=== PATIENT | male | born 1975 | race Caucasian/White ===

== ENCOUNTER 2017-02-24 16:00 | Inpatient (IN) | payer MEDICAID ==
[~2017-02-24] VITALS: Ht 182.9 cm; Wt 94.1 kg
[~2017-02-24 16:00] MED LIST: GABA-531 PO; OLAN20TA2 PO
[2017-02-24] MEDS ORDERED: LORazepam 2 MG/ML VIAL IM ONE (16:30)
[2017-02-24] MEDS ORDERED: HALOPERIDOL LACTATE 5 MG/ML VIAL IM ONE (16:30)
[2017-02-24] MEDS ORDERED: DiphenhydrAMINE HCL 50 MG/ML VIAL IM ONE (16:30)
[2017-02-24 16:34] LABS: BASOPHILS % (AUTO) 0.2 % (0.0-2.0); EOSINOPHILS % (AUTO) 7.7 % (1.0-6.0); HEMATOCRIT 43.3 % (41-53); HEMOGLOBIN 14.6 g/dL (13.5-17.5); LYMPHOCYTES # (AUTO) 2.4 K/uL (1.0-4.8); LYMPHOCYTES % (AUTO) 27.9 % (22.0-44.0); MEAN CORPUSCULAR HGB CONC 33.8 G/dL (31.0-37.0); MEAN CORPUSCULAR VOLUME 89 fL (80-100); MONOCYTES # (AUTO) 1.1 K/uL (0.1-1.0); MONOCYTES % (AUTO) 12.2 % (2.0-9.0); NEUTROPHILS # (AUTO) 4.5 K/uL (1.8-7.7); PLATELET COUNT (AUTO) 291 K/uL (150-450); RED BLOOD CELL COUNT(AUTO) 4.87 MIL/uL (4.50-5.90); RED CELL DISTRIBUTION WIDTH 14.4 % (11.5-14.5); WHITE BLOOD COUNT (AUTO) 8.6 K/uL (4.5-11.0)
[2017-02-24 16:47] LABS: ANION GAP 11 mmol/L (8-16); CALCIUM, TOTAL 8.2 mg/dL (8.8-10.5); CARBON DIOXIDE 24 mmol/L (22-29); CHLORIDE 110 mmol/L (98-107); CREATININE 1.02 mg/dL (0.60-1.30); GLOMERULAR FILTR. RATE CALC > 60 mL/min (>60); POTASSIUM 4.3 mmol/L (3.5-5.1); SODIUM SERUM 145 mmol/L (136-145); UREA NITROGEN, BLOOD 6 mg/dL (7-18)
[2017-02-24 16:53] LABS: ALANINE AMINOTRANSFERASE 56 U/L (12-78); ALBUMIN 3.3 g/dL (3.4-5.0); ASPARTATE AMINOTRANSFERASE 30 U/L (15-37); BILIRUBIN,TOTAL 0.3 mg/dL (0.1-1.0)
[2017-02-24] MEDS ORDERED: BUSP5TAB20 PO (16:53)
[2017-02-24] MEDS ORDERED: PROZ10 PO (16:53)
[2017-02-24] MEDS ORDERED: ZOLPIDEM TARTRATE 10 MG TABLET PO PRN (17:15)
[2017-02-24] MEDS ORDERED: HALOPERIDOL 5 MG TABLET PO PRN (17:15)
[2017-02-24 20:42] VITALS: BP 130/86
[2017-02-24] MEDS ORDERED: PNEUMOCOCCAL VACCINE POLYVALENT 0.5 ML VIAL [PPSV23] IM ONE (21:15)
[2017-02-25 08:29] LABS: BASOPHILS % (AUTO) 0.3 % (0.0-2.0); EOSINOPHILS % (AUTO) 9.1 % (1.0-6.0); HEMATOCRIT 44.1 % (41-53); HEMOGLOBIN 14.9 g/dL (13.5-17.5); LYMPHOCYTES # (AUTO) 1.8 K/uL (1.0-4.8); LYMPHOCYTES % (AUTO) 24.8 % (22.0-44.0); MEAN CORPUSCULAR HEMOGLOBIN 30.5 pg (26.0-34.0); MEAN CORPUSCULAR HGB CONC 33.8 G/dL (31.0-37.0); MEAN CORPUSCULAR VOLUME 90 fL (80-100); MONOCYTES # (AUTO) 0.8 K/uL (0.1-1.0); MONOCYTES % (AUTO) 11.4 % (2.0-9.0); NEUTROPHILS # (AUTO) 3.9 K/uL (1.8-7.7); NEUTROPHILS % (AUTO) 54.4 % (40.0-70.0); PLATELET COUNT (AUTO) 261 K/uL (150-450); RED BLOOD CELL COUNT(AUTO) 4.89 MIL/uL (4.50-5.90); RED CELL DISTRIBUTION WIDTH 14.6 % (11.5-14.5); WHITE BLOOD COUNT (AUTO) 7.2 K/uL (4.5-11.0)
[2017-02-25 08:45] LABS: ALANINE AMINOTRANSFERASE 52 U/L (12-78); ALBUMIN 3.1 g/dL (3.4-5.0); ANION GAP 8 mmol/L (8-16); ASPARTATE AMINOTRANSFERASE 39 U/L (15-37); BILIRUBIN,TOTAL 0.3 mg/dL (0.1-1.0); CALCIUM, TOTAL 8.8 mg/dL (8.8-10.5); CARBON DIOXIDE 26 mmol/L (22-29); CHLORIDE 109 mmol/L (98-107); CHOL/HDL RATIO 4.1 (4.2-7.3); CREATININE 0.89 mg/dL (0.60-1.30); GLOMERULAR FILTR. RATE CALC > 60 mL/min (>60); POTASSIUM 4.4 mmol/L (3.5-5.1); SODIUM SERUM 143 mmol/L (136-145); THYROID STIMULATING HORMONE 1.46 uIU/mL (0.36-3.74); TOTAL PROTEIN, SERUM 6.4 g/dL (6.4-8.2); UREA NITROGEN, BLOOD 10 mg/dL (7-18)
[2017-02-25 08:58] VITALS: BP 132/88
[2017-02-25] MEDS: NYSTATIN 30 GM CREAM TP SCH ×2 (09:40→16:06)
[2017-02-25] MEDS ORDERED: ACETAMINOPHEN 325 MG TABLET PO PRN (14:00)
[2017-02-25] MEDS ORDERED: IBUPROFEN 400 MG TABLET PO PRN (14:00)
[2017-02-25] MEDS ORDERED: GABA-533 PO (14:08)
[2017-02-25 16:05] VITALS: BP 125/78
[2017-02-25] MEDS: OLANZapine 10 MG TABLET PO SCH (20:03)
[2017-02-26 06:34] VITALS: BP 122/67
[2017-02-26 08:01] VITALS: BP 117/65
[2017-02-26] MEDS: NYSTATIN 30 GM CREAM TP SCH ×2 (09:42→17:12)
[2017-02-26] MEDS: BusPIRone HCL 5 MG TABLET PO SCH ×2 (09:42→17:13)
[2017-02-26] MEDS: GABAPENTIN 400 MG CAPSULE PO SCH ×3 (09:42→17:12)
[2017-02-26] MEDS: FLUoxetine HCL 20 MG CAPSULE PO SCH (09:42)
[2017-02-26 16:00] VITALS: BP 114/66
[2017-02-26] MEDS: OLANZapine 10 MG TABLET PO SCH (21:38)
[2017-02-27 06:09] VITALS: BP 124/69
[2017-02-27 08:01] VITALS: BP 110/58
[2017-02-27] MEDS: BusPIRone HCL 5 MG TABLET PO SCH ×2 (09:22→16:34)
[2017-02-27] MEDS: GABAPENTIN 400 MG CAPSULE PO SCH ×3 (09:22→16:35)
[2017-02-27] MEDS: LORazepam 2 MG TABLET PO PRN ×3 (09:22→18:59)
[2017-02-27] MEDS: FLUoxetine HCL 20 MG CAPSULE PO SCH (09:22)
[2017-02-27] MEDS: NYSTATIN 30 GM CREAM TP SCH ×2 (09:23→16:35)
[2017-02-27 16:00] VITALS: BP 116/67
[2017-02-27] MEDS: OLANZapine 10 MG TABLET PO SCH (20:29)
[2017-02-28 05:40] VITALS: BP 114/70
[2017-02-28] MEDS: LORazepam 2 MG TABLET PO PRN ×2 (05:43→08:28)
[2017-02-28] MEDS ORDERED: FLUO-191 PO (08:11)
[2017-02-28] MEDS: FLUoxetine HCL 20 MG CAPSULE PO SCH (08:28)
[2017-02-28] MEDS: GABAPENTIN 400 MG CAPSULE PO SCH ×2 (08:28→12:32)
[2017-02-28] MEDS: BusPIRone HCL 5 MG TABLET PO SCH (08:29)
[2017-02-28] MEDS: NYSTATIN 30 GM CREAM TP SCH (08:30)
== END 2017-02-28 13:30 | disposition home or self-care (01) | DRG 750 ==
LOC: EMS 16:02 → B3A 18:36
PROVIDERS: ADMIT Psychiatry & Neurology Psychiatry; ATTEND Psychiatry & Neurology Psychiatry
DX: F25.0 Schizoaffective disorder, bipolar type (principal); R45.851 Suicidal ideations; Z78.1 Physical restraint status; F17.210 Nicotine dependence, cigarettes, uncomplicated; B18.2 Chronic viral hepatitis C; F41.9 Anxiety disorder, unspecified; F19.10 Other psychoactive substance abuse, uncomplicated; F15.90 Other stimulant use, unspecified, uncomplicated; Z79.899 Other long term (current) drug therapy; Z28.21 Immunization not carried out because of patient refusal
CPT/HCPCS: 84436; 84439; 84443; 90471; 96372; 99285; G0480; J1200; J1630; J2060